=== PATIENT | female | born 1940 | race Hispanic/Latino ===

== ENCOUNTER 2018-07-29 13:01 | Emergency (ER) | payer MEDICARE, OTHER ==
[~2018-07-29] VITALS: Ht 160 cm; Wt 80.3 kg
[~2018-07-29 13:01] MED LIST: ALBUTEROL2.5 MG/3 M NEB; ALENDRONATE SOD70 MG PO; AMLODIPINE BESY10 MG PO; AMLODIPINE-BEN1 EAC5 PO; AUGMENTIN 875-1 EACH PO; CEFTIN250 MG; CETIRIZINE HCL10 MG PO; CIPRO500 MG PO; CLONIDINE HCL0.1 MG PO; CLONIDINE HCL0.2 MG PO; FAMOTIDINE40 MG PO; HYDROCHLOROTHIA25 MG PO; LISINOPRIL-HCT1 EAC2 PO; LISINOPRIL20 MG PO; MONTELUKAST SOD10 MG PO; NAPROXEN250 MG PO; OMEPRAZOLE40 MG PO; OYSTER SHELL 51 EACH PO; PREDNISONE10 MG PO; SYMBICORT 16010.2 GM INH; VITAMIN C500 MG PO
--- OUTSIDE RECORDS SUMMARY | 2018-07-29 13:04 | XMS REPORT ---
Author Author [facility] Organization [facility] Address Unknown Phone Unavailable Care Team Providers Care Bread Wrapper Name Role Phone HANS Suha CABRAL Unavailable Unavailable Payers Payer Name Policy Type Policy Number Effective Date Expiration Date Problems This patient has no known problems. Allergies, Adverse Reactions, Alerts Allergy Name Allergy Type Status Severity Reaction(s) Onset Date Inactive Date Treating Clinician Comments No Known Allergies DA Active U 2017-10-08 00:00:00 Medications This patient has no known medications. Results Test Description Test Time Test Comments Text Results Atomic Results Result Comments MRI BRAIN WO [facility] [address] [place] [address] Patient Name: KAILEY HILL MR #: [id number] : 1940 Age/Sex: 76/F Req #: [id number] Adm Physician: MISHA MAXWELL MD Ordered by: ARCADIO RHODES MD Report #: [id number] Location: MED/SURG Room/Bed: [facility] Procedure: [id number] MRI/MRI BRAIN WO Exam Date: 06/23/17 Exam Time: 1130 REPORT STATUS: Signed Exam: Brain MRI without IV contrast History: Dizziness, disequilibrium. Comparison studies: None Technique: Precontrast sagittal axial T2 FS, axial DWI, axial coronal T1 flair, axial T1 FLAIR and axial T2*GRE. Intravenous contrast: None Findings: Limitations: The sagittal T2 sequences somewhat limited by artifacts related to patient motion. Scalp: Normal in signal . No masses . Bone marrow: Normal in signal intensity. Brain sulci: Appropriate for age. Ventricles: Normal in size. No hydrocephalus. Extra axial spaces: No mass, no fluid collection. Parenchyma: No mass, hemorrhage or acute ischemia. Punctate nonspecific T2 FLAIR hyperintense focus in the anterior left subinsular white matter is compatible with age-appropriate chronic small vessel ischemic changes. Suprasellar region: No abnormalities. Craniocervical junction: Patent foramen magnum. No Chiari malformation . Vessels: Normal flow-voids in the arteries and sinuses. Incidental findings: Minimal T2 hyperintense inflammatory changes in the mastoids bilaterally. IMPRESSION: 1. No intracranial abnormalities. 2. No changes from the previous head CT of 06/23/2017. Signed by: Dr. Pilo Junior M.D. on 06/23/2017 1:27 PM Dictated By: PILO JUNIOR MD 26 Transcribed By: TANNER on 06/23/171326 COPY TO: ARCADIO RHODES MD CHEST 2 VIEWS [place] [address] Patient Name: KAILEY HILL MR #: [id number] : 1940 Age/Sex: 76/F Req #: [id number] Adm Physician: Ordered by: ARCADIO RHODES MD Report #: [id number] Location: Room/Bed: Procedure: [id number] DX/CHEST 2 VIEWS Exam Date: 06/23/17 Exam Time: 126 REPORT STATUS: Signed CHEST 2 VIEWS, Technique: CHEST 2 VIEWS Comparison: 01/31/2016 Clinical history: Chest pain DISCUSSION: Stable mild cardiomegaly. Otherwise normal appearance of the mediastinum, lungs, and pleural spaces. No acute bony abnormality seen. IMPRESSION: Mild cardiomegaly. Otherwise negative. Signed by: Dr Radha Ferguson MD on 06/23/2017 1:54 AM Dictated By: RADHA FERGUSON MD 3 Transcribed By: TANNER on 06/23/17153 COPY TO: ARCADIO RHODES MD CT BRAIN WO [place] [address] Patient Name: KAILEY HLIL MR #: [id number] : 1940 Age/Sex: 76/F Req #: [id number] Adm Physician: Ordered by: ARCADIO RHODES MD Report #: [id number] Location: ER Room/Bed: Procedure: [id number] CT/CT BRAIN WO Exam Date: 06/23/17 Exam Time: 126 REPORT STATUS: Signed History: Dizziness Comparison studies: None Technique: Axial images were obtained from the skull base to the vertex. Coronal and sagittal reconstructions obtained from the axial data. Findings: Scalp/skull: No abnormalities. No fractures, blastic or lytic lesions. Extra-axial spaces: No masses. No fluid collections. Brain sulci: Appropriate for age. Ventricles: Normal in size and configuration. No hydrocephalus. Parenchyma: No abnormal densities. No masses, hemorrhage, acute or chronic cortical vascular insults. Sellar/suprasellar region: No abnormalities Craniocervical junction: Patent foramen magnum. No Chiari one malformation. Incidental atherosclerotic calcifications in the carotid siphons. IMPRESSION: No intracranial abnormalities Signed by: Dr. Fabian Daniels M.D. on 06/23/2017 1:56 AM Dictated By: FABIAN DICKENS MD, MD 5 Transcribed By: TANNER on 06/23/17155 COPY TO: ARCADIO RHODES MD
[2018-07-29] MEDS ORDERED: LOSARTAN POTAS100 MG PO (13:18)
[2018-07-29 13:39] LABS: BASOPHILS % 0.3 % (0.0-1.0); EOSINOPHILS # (AUTO) 0.1 (0.0-0.4); EOSINOPHILS % 0.7 % (0.0-6.0); HEMATOCRIT 37.7 % (34.2-44.1); HEMOGLOBIN 12.4 g/dL (12.0-16.0); LYMPHOCYTES # (AUTO) 0.7 (1.0-3.2); LYMPHOCYTES % 9.1 % (18.0-39.1); MEAN CORPUSCULAR HEMOGLOBIN 28.6 pg (28-32); MEAN CORPUSCULAR HGB CONC 32.9 g/dL (31-35); MEAN CORPUSCULAR VOLUME 87.1 fL (81-99); MONOCYTES # (AUTO) 0.5 (0.2-0.8); NEUTROPHILS % 82.1 % (38.7-80.0); PLATELET COUNT 146 x10e3/uL (140-360); RED BLOOD COUNT 4.33 x10e6/uL (3.6-5.1); RED CELL DISTRIBUTION WIDTH 13.5 % (11.7-14.4)
[2018-07-29] MEDS ORDERED: ACETAMINOPHEN 325 MG TAB PO NR (13:45)
[2018-07-29 13:51] LABS: ALBUMIN 3.8 g/dL (3.5-5.0); ALBUMIN/GLOBULIN RATIO 1.3 (0.8-2.0); ANION GAP 13.8 mmol/L (8-16); CALCIUM 9.4 mg/dL (8.4-10.2); CREATININE, SERUM 1.13 mg/dL (0.57-1.11); POTASSIUM 3.8 mmol/L (3.5-5.1)
--- NOTE | 2018-07-29 14:58 | Diagnostic Imaging Report ---
PROCEDURE: X-RAY CHEST, TWO VIEWS COMPARISON: None. INDICATIONS: SEPSIS, COUGH, HEADACHE FINDINGS: LUNGS: Mild pulmonary vascular congestion. PLEURA: No effusions or pneumothorax. HEART & MEDIASTINUM: The heart is within normal size-limits. Tortuous thoracic aorta. BONES & SOFT TISSUES: No acute findings. CONCLUSION: Mild pulmonary vascular congestion Sean Chavarria D.O. Dictated by: Sean Chavarria D.O. on 07/29/2018 at 15:09 Electronically approved by: Sean Chavarria D.O. on 07/29/2018 at 15:09
[2018-07-29 16:14] VITALS: BP 112/75
== END 2018-07-29 16:19 | disposition home or self-care (01) ==
LOC: ER 13:01
DX: J10.1 Influenza due to other identified influenza virus with other respiratory manifestations (principal); I10 Essential (primary) hypertension; K21.9 Gastro-esophageal reflux disease without esophagitis; F32.9 Major depressive disorder, single episode, unspecified
CPT/HCPCS: 36415; 71046; 80053; 85025; 87040; 87400; 93005; 99283

== ENCOUNTER 2018-07-31 13:19 | Emergency (ER) | payer MEDICARE, OTHER ==
[~2018-07-31] VITALS: Ht 160 cm; Wt 80.3 kg
[~2018-07-31 13:19] MED LIST changes: +LOSARTAN POTAS100 MG PO
[2018-07-31] MEDS ORDERED: BENZONATATE 100 MG CAP PO STA (14:23)
--- NOTE | 2018-07-31 15:23 | Diagnostic Imaging Report ---
EXAMINATION: CHEST 2 VIEWS INDICATION: Cough, fever COMPARISON: Chest radiograph 07/29/18. FINDINGS: TUBES and LINES: None. LUNGS: Improved mild central vascular congestion. Mild patchy opacity in the left lower lung zone. No evidence of lobar consolidation. PLEURA: No pleural effusion or pneumothorax. HEART AND MEDIASTINUM: The cardiomediastinal silhouette is unchanged. Atherosclerotic calcification of the aortic arch. BONES AND SOFT TISSUES: No acute osseous lesion. Soft tissues are unremarkable. UPPER ABDOMEN: No free air under the diaphragm. IMPRESSION: Improved mild central vascular congestion. Mild patchy left basilar opacity which could represent atelectasis or early pneumonia in a patient with cough. Follow-up chest radiograph is suggested. Signed by: Dr. Katelyn Link MD on 07/31/2018 3:20 PM
[2018-07-31 16:02] VITALS: BP 146/57
[2018-07-31 16:31] LABS: BASOPHILS % 0.5 % (0.0-1.0); EOSINOPHILS # (AUTO) 0.1 (0.0-0.4); EOSINOPHILS % 1.8 % (0.0-6.0); HEMATOCRIT 38.8 % (34.2-44.1); HEMOGLOBIN 12.6 g/dL (12.0-16.0); LYMPHOCYTES # (AUTO) 1.3 (1.0-3.2); LYMPHOCYTES % 28.4 % (18.0-39.1); MEAN CORPUSCULAR HEMOGLOBIN 28.6 pg (28-32); MEAN CORPUSCULAR HGB CONC 32.5 g/dL (31-35); MONOCYTES # (AUTO) 0.5 (0.2-0.8); MONOCYTES % 11.8 % (4.4-11.3); NEUTROPHILS # (AUTO) 2.5 (2.1-6.9); PLATELET COUNT 164 x10e3/uL (140-360); RED BLOOD COUNT 4.41 x10e6/uL (3.6-5.1); RED CELL DISTRIBUTION WIDTH 13.6 % (11.7-14.4)
[2018-07-31] MEDS ORDERED: LEVOFLOXACIN 500 MG TAB ONE (17:42)
[2018-07-31] MEDS ORDERED: LEVOFLOXACIN 500 MG TAB PO ONE (18:00)
== END 2018-07-31 17:45 | disposition home or self-care (01) ==
LOC: ER 13:19
DX: R05 Cough (principal); J15.9 Unspecified bacterial pneumonia; I10 Essential (primary) hypertension; K21.9 Gastro-esophageal reflux disease without esophagitis
CPT/HCPCS: 36415; 71046; 83518; 85025; 87040; 87070; 99283

== ENCOUNTER 2019-06-04 13:04 | Observation (INO) | payer OTHER ==
[~2019-06-04] VITALS: Ht 162.6 cm; Wt 70.3 kg
[~2019-06-04 13:04] MED LIST changes: +MECLIZINE HCL12.5 MG PO
--- NOTE | 2019-06-04 14:02 | Diagnostic Imaging Report ---
EXAMINATION: CHEST SINGLE (PORTABLE) INDICATION: Shortness of breath. Dizzy. ^sob COMPARISON: 11/07/2018 FINDINGS: TUBES and LINES: None. LUNGS: Lungs are well inflated. Lungs are clear. There is no evidence of pneumonia or pulmonary edema. PLEURA: No pleural effusion or pneumothorax. HEART AND MEDIASTINUM: The cardiomediastinal silhouette is unremarkable. BONES AND SOFT TISSUES: No acute osseous lesion. Soft tissues are unremarkable. UPPER ABDOMEN: No free air under the diaphragm. IMPRESSION: No acute thoracic abnormality. Signed by: Dr. Jamarcus Duenas M.D. on 06/04/2019 1:58 PM
[2019-06-04 14:19] LABS: BASOPHILS % 0.5 % (0.0-1.0); EOSINOPHILS # (AUTO) 0.1 (0.0-0.4); EOSINOPHILS % 1.8 % (0.0-6.0); HEMATOCRIT 39.1 % (34.2-44.1); HEMOGLOBIN 12.8 g/dL (12.0-16.0); LYMPHOCYTES # (AUTO) 1.8 (1.0-3.2); LYMPHOCYTES % 22.8 % (18.0-39.1); MEAN CORPUSCULAR HEMOGLOBIN 28.1 pg (28-32); MEAN CORPUSCULAR HGB CONC 32.7 g/dL (31-35); MEAN CORPUSCULAR VOLUME 85.7 fL (81-99); MONOCYTES # (AUTO) 0.5 (0.2-0.8); MONOCYTES % 6.9 % (4.4-11.3); NEUTROPHILS # (AUTO) 5.2 (2.1-6.9); NEUTROPHILS % 67.5 % (38.7-80.0); PLATELET COUNT 189 x10e3/uL (140-360); RED BLOOD COUNT 4.56 x10e6/uL (3.6-5.1); RED CELL DISTRIBUTION WIDTH 13.9 % (11.7-14.4)
[2019-06-04 14:21] LABS: BILIRUBIN,URINE NEGATIVE (NEGATIVE); CLARITY,URINE CLEAR (CLEAR); COLOR,URINE YELLOW (YELLOW); KETONES,URINE NEGATIVE (NEGATIVE); LEUKOCYTE ESTERASE ,URINE TRACE (NEGATIVE); NITRITE,URINE NEGATIVE (NEGATIVE); PROTEIN,URINE DIPSTICK NEGATIVE (NEGATIVE); URINE UROBILINOGEN 0.2 mg/dL (0.2 - 1)
[2019-06-04 14:30] LABS: ALBUMIN 3.7 g/dL (3.5-5.0); ALBUMIN/GLOBULIN RATIO 1.4 (0.8-2.0); ANION GAP 13.8 mmol/L (8-16); CREATININE, SERUM 1.11 mg/dL (0.57-1.11); MAGNESIUM 1.6 MG/DL (1.3-2.1); POTASSIUM 3.8 mmol/L (3.5-5.1)
[2019-06-04 14:33] LABS: EPITHELIAL CELLS,URINE FEW /LPF; WBC,URINE (MAN) 0-5 /HPF (0-5)
[2019-06-04 14:37] LABS: CREATINE KINASE MB 0.7 ng/mL (0-5.0)
--- NOTE | 2019-06-04 15:03 | Diagnostic Imaging Report ---
EXAMINATION: Head CT HISTORY: Dizziness COMPARISON: Head CT 11/07/2018 TECHNIQUE: Multidetector axial images were obtained without contrast from the foramen magnum to the vertex . The images were reconstructed using brain and bone algorithms. Thin section brain images were reformatted into coronal and sagittal planes. Image quality: Motion/streaking artifact limits the evaluation of the skull base and posterior cranial fossa. Dose modulation, iterative reconstruction, and/or weight based adjustment of the mA/kV was utilized to reduce the radiation dose to as low as reasonably achievable. FINDINGS: Parenchyma: 1. No abnormal density in the brain parenchyma. 2. No mass or hemorrhage. No CT evidence of acute territorial vascular insult. Extra-axial spaces:No abnormal density. No extra-axial fluid collections Brain volume: Normal for age. Ventricles: No hydrocephalus or displacement. Arteries: No density suggestive of thrombus. Dural sinuses: No abnormal density. Extra-axial spaces: No abnormal density. Foramen magnum: No mass, Chiari malformation, or basilar invagination. Sella: No obvious mass. Paranasal/mastoid sinuses: Imaged portions unremarkable. Skull/Scalp: No lytic or blastic lesions. No fractures. IMPRESSION: No intracranial abnormalities, unchanged compared to head CT of 11/07/2018. Signed by: Dr. Skye Velazco M.D. on 06/04/2019 3:00 PM
[2019-06-04] MEDS: MECLIZINE HCL 12.5 MG TAB PO SCH ×2 (17:43→23:22)
[2019-06-04] MEDS ORDERED: LISINOPRIL40 MG PO (17:48)
[2019-06-04] MEDS ORDERED: HYDROCHLOROTH12.5 M1 PO (17:48)
[2019-06-04] MEDS ORDERED: CLONIDINE HCL0.3 MG PO (17:48)
[2019-06-04] MEDS ORDERED: LOSARTAN POTAS100 MG PO (17:50)
--- NOTE | 2019-06-04 19:04 | NUR ---
Report to COLLIN Cowan
[2019-06-04 20:00] VITALS: BP 191/98
[2019-06-04 22:11] VITALS: BP 191/98
[2019-06-04] MEDS ORDERED: LISINOPRIL 20 MG TAB PO ONE (22:45)
[2019-06-04] MEDS ORDERED: LOSARTAN POTASSIUM 100 MG TAB PO ONE (22:45)
[2019-06-05] VITALS: BP 121/56
[2019-06-05 04:00] VITALS: BP 138/63
[2019-06-05] MEDS: MECLIZINE HCL 12.5 MG TAB PO SCH ×2 (06:45→12:05)
--- NOTE | 2019-06-05 07:00 | NUR ---
BEDSIDE SHIFT REPORT RECEIVED FROM NIGHT RN. PT DENIES NEEDS AT THIS TIME.
[2019-06-05 09:00] VITALS: BP 138/63
[2019-06-05] MEDS ORDERED: NON-FORMULARY MEDICATION (Lisinopril 40 MG) PO SCH (09:00)
[2019-06-05] MEDS ORDERED: LOSARTAN POTASSIUM 100 MG TAB PO SCH (09:00)
[2019-06-05] MEDS ORDERED: LISINOPRIL 20 MG TAB PO SCH (09:00)
[2019-06-05 09:22] VITALS: BP 127/58
--- NOTE | 2019-06-05 12:04 | Discharge Summary ---
PRIMARY CARE PHYSICIAN: Laith Regan MD FINAL DIAGNOSES: 1. Benign positional vertigo. 2. Blood pressure medication adjustment. SUMMARY: The patient is a 78-year-old female with some blood pressure problems, but more from the dizziness or versus increase in blood pressure recently. The patient most likely blood pressure was elevated and adjusted the medication quite significantly, which may cause dizziness in light of blood pressure better controlled at 120 systolic. Blood pressure might drop too rapid and cause the dizziness. However, here the patient's systolic blood pressure 138 and diastolic 63, and her dizziness has completely resolved with meclizine schedule 12.5 mg every 6 hours. The patient is otherwise stable. She did receive 3 doses of the meclizine. She is ambulatory. She is doing much better. Her hydrochlorothiazide was discontinued along with her clonidine 0.3 mg. Recently, the patient's clonidine was adjusted per record that the patient was on clonidine 0.2 mg 3 times a day, changed to clonidine 0.3 mg 3 times a day. The losartan was 100 mg daily, changed to 100 mg twice a day. Then, HCTZ was a new medication at 12.5 mg daily. The plan and I discussed this with the patient's family, her daughter who is very well knowledgeable of the patient currently. The medication adjustment as follows. 1. Keep the clonidine 0.3 mg 3 times a day since the patient has been taking. Keep the lisinopril 40 mg twice a day since the patient has been taking. 2. Discontinue HCTZ and discontinue losartan since the patient is already on lisinopril. 3. New prescription nifedipine XL 30 mg in the evening. Meclizine 12.5 mg 3 times a day and every 6 hours as needed. Discussed with the patient at length and her granddaughter as well regarding changes and monitoring at home. The patient's granddaughter saying that they do have a blood pressure cuff and will monitor closely. I would like to keep the patient's blood pressure between 140-160 if possible. The patient is otherwise stable. Labs otherwise unremarkable. The patient will go home today. CT scan of the brain negative. Chest x-ray unremarkable. The patient will follow up with Dr. Laith Regan within a week. MD MARIA ELENA Klein/RAJAN /[id number]
[2019-06-05 12:48] VITALS: BP 189/79
== END 2019-06-05 14:45 | disposition home or self-care (01) ==
LOC: ER 13:04 → ERHOLD 15:28 → MED/SURG2 22:14
PROVIDERS: ADMIT Internal Medicine; ATTEND Internal Medicine
DX: H81.10 Benign paroxysmal vertigo, unspecified ear (principal); I10 Essential (primary) hypertension
CPT/HCPCS: 36415 ×2; 70450; 71045; 80053; 81001; 82550; 82553; 82948; 83735; 83880; 84484; 85025; 99284; G0378 ×2; J8597 ×2

== ENCOUNTER 2019-06-09 11:37 | Emergency (ER) | payer OTHER ==
[~2019-06-09] VITALS: Ht 160 cm; Wt 75.3 kg
[~2019-06-09 11:37] MED LIST changes: +CLONIDINE HCL0.3 MG PO; +HYDROCHLOROTH12.5 M1 PO; +LISINOPRIL40 MG PO
[2019-06-09 13:07] LABS: BASOPHILS # (AUTO) 0.1 (0.0-0.1); BASOPHILS % 0.6 % (0.0-1.0); EOSINOPHILS # (AUTO) 0.1 (0.0-0.4); EOSINOPHILS % 0.7 % (0.0-6.0); HEMATOCRIT 43.7 % (34.2-44.1); HEMOGLOBIN 14.2 g/dL (12.0-16.0); LYMPHOCYTES # (AUTO) 1.7 (1.0-3.2); LYMPHOCYTES % 19.3 % (18.0-39.1); MEAN CORPUSCULAR HEMOGLOBIN 27.7 pg (28-32); MEAN CORPUSCULAR HGB CONC 32.5 g/dL (31-35); MEAN CORPUSCULAR VOLUME 85.4 fL (81-99); MONOCYTES # (AUTO) 0.5 (0.2-0.8); MONOCYTES % 5.8 % (4.4-11.3); NEUTROPHILS # (AUTO) 6.3 (2.1-6.9); NEUTROPHILS % 73.1 % (38.7-80.0); PLATELET COUNT 217 x10e3/uL (140-360); RED BLOOD COUNT 5.12 x10e6/uL (3.6-5.1); RED CELL DISTRIBUTION WIDTH 13.7 % (11.7-14.4)
[2019-06-09 13:27] LABS: ALBUMIN 4.2 g/dL (3.5-5.0); ALBUMIN/GLOBULIN RATIO 1.3 (0.8-2.0); ANION GAP 15.5 mmol/L (8-16); CALCIUM 10.3 mg/dL (8.4-10.2); CREATININE, SERUM 1.46 mg/dL (0.57-1.11); POTASSIUM 4.5 mmol/L (3.5-5.1)
== END 2019-06-09 15:01 | disposition home or self-care (01) ==
LOC: ER 11:37
DX: R55 Syncope and collapse (principal)
CPT/HCPCS: 36415; 80053; 85025; 93005; 99284

== ENCOUNTER → 2019-06-25 | Outpatient (CLI) | payer OTHER ==
--- NOTE | 2019-06-25 12:38 | Diagnostic Imaging Report ---
Exam: Bone mineral density study. History: Osteopenia. Comparison: None Discussion: Evaluation of the left hip and lumbar spine was performed utilizing DEXA Hologic bone densitometer. The study is technically adequate. Left hip total bone mineral density: 0.839gm/cm2, T-score is -0.9, Z-score is 1.1. Left hip femoral neck bone mineral density: 0.705gm/cm2, T-score is -1.4, Z-score is 0.8. Lumbar spine total bone mineral density:0.949gm/cm2, T-score is-0.9, Z-score is 1.8. Impression: 1. Osteopenia of the left hip, fracture risk is increased 2. Normal bone mineral density of the lumbar spine, fracture risk is not increased. Least significant change (LSC) for bone mineral density as provided by fire prevention officer is 0.023 g/cm2 for lumbar spine and 0.027 g/cm2 for total hip. 10 -year fracture risk per WHO Fracture Risk Assessment Tool (FRAX) for: Major osteoporotic fracture is 7.2% Hip fracture is 1.5% The above fracture probability is calculated for an untreated patient. Fracture probably may be lower if the patient has received treatment. All treatment decisions require clinical judgment and consideration of individual patient factors, including patient preferences, comorbidities, previous drug use and risk factors not captured in the FRAX model (e.g. frailty, falls, vitamin D deficiency, increased bone turnover, interval significant decline in BMD). The patient's fracture risk is compared to an age-matched control. Medical evaluation for secondary causes of low bone bone mineral density may be appropriate. Correlate clinically for the necessity and timing of the next bone mineral density study. Signed by: Dr. Jamarcus Duenas M.D. on 06/25/2019 12:35 PM
== END ==
LOC: MAMMO 11:37
PROVIDERS: ATTEND Internal Medicine
DX: Z12.31 Encounter for screening mammogram for malignant neoplasm of breast (principal); M85.80 Other specified disorders of bone density and structure, unspecified site
CPT/HCPCS: 77067; 77080

== ENCOUNTER → 2019-07-21 | Outpatient (CLI) | payer OTHER ==
--- NOTE | 2019-07-22 10:20 | Diagnostic Imaging Report ---
#[id number] - MGDXRT #UNILATERAL RIGHT DIGITAL DIAGNOSTIC MAMMOGRAM WITH SPOT COMPRESSION: 07/21/2019 Comparison is made to exams dated: 06/25/2019 mammogram and 07/21/2019 ultrasound - [facility]. There are scattered fibroglandular elements in the right breast. There is a benign 5 mm cyst in the right breast central to the nipple anterior depth. This is seen in additional views. This correlates with ultrasound findings. No other significant masses or calcifications are seen in the breast. IMPRESSION: BENIGN See the report for ultrasound performed the same day for additional details. There is no mammographic evidence of malignancy. A 1 year screening mammogram is recommended. The patient will be notified by letter of the results. VIDYA HARRINGTON M.D. ct/penrad:07/21/2019 16:42:35 Waiter And Cashier: Leatha DOMINGUEZ)(Mor), [facility] letter sent: Normal Exam Mammogram BI-RADS: 2 Benign
--- NOTE | 2019-07-22 10:20 | Diagnostic Imaging Report ---
#[id number] - USBRELIMRT ULTRASOUND OF THE RIGHT BREAST : 07/21/2019 Comparison is made to exams dated: 07/21/2019 mammogram and 06/25/2019 mammogram - [facility]. Real-time ultrasound was performed on the right breast. There is a benign 5 mm oval cyst in the right breast central to the nipple anterior depth. This oval cyst is anechoic. This correlates with mammography findings. IMPRESSION: BENIGN There is no sonographic evidence of malignancy. The 5 mm oval cyst in the right breast is benign. A 1 year screening mammogram is recommended. VIDYA HARRINGTON M.D. ct/penrad:07/21/2019 16:43:07 Child Protection Specialist: RIKI DUNLAP [facility], [facility] letter sent: Normal Exam Ultrasound BI-RADS: 2 Benign
== END ==
LOC: MAMMO 12:29
PROVIDERS: ATTEND Internal Medicine
DX: R92.2 Inconclusive mammogram (principal); N64.59 Other signs and symptoms in breast

== ENCOUNTER 2020-01-31 20:57 | Emergency (ER) | payer MEDICARE, OTHER ==
[~2020-01-31] VITALS: Ht 160 cm; Wt 75.3 kg
--- NOTE | 2020-01-31 21:38 | Emergency Department Note ---
History of Present Illnes History of Present Illness Chief Complaint: Hypertension History of Present Illness This is a 79 year old female arrives to the ED with complaints of high blood pressure. Patient states she is compliant with her lisinopril and amlodipine daily, patient states she started seeing a new doctor and was told to take losartan as well as needed when her blood pressure is high. Patient's systolic blood pressure was over 200 home she was started prior to arrival. Patient complaining of mild lightheadedness in the morning. 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 DRY AND WNL FOR PT; EKG PERFORMED AND GIVEN TO ER FOR REVIEW; ER MD IN TRIAGE FOR INITIAL EVAL. Duration (how long): day(s) Timing of current episode: constant Progression: waxing and waning Chronicity: new Past Medical/Family History Physician Review I have reviewed the patient's past medical and family history. Any updates have been documented here. Past Medical History Recent Fever: No Clinical Suspicion of Infectio: No New/Unexplained Change in Ment: No Past Medical History: Hypertension, Cancer, Migraines, Depression, Hyperlipedem ia Other Medical History: DIZZINESS SKIN CA Past Surgical History: Cataract Removal Other Surgery: SKIN CA Other Last Tetanus: ood Review of Systems Review of Systems Constitutional: Reports no symptoms EENTM: Reports no symptoms Cardiovascular: Reports no symptoms Respiratory: Reports no symptoms Gastrointestinal: Reports no symptoms Genitourinary: Reports no symptoms Musculoskeletal: Reports no symptoms Integumentary: Reports no symptoms Neurological: Reports no symptoms Psychological: Reports no symptoms Endocrine: Reports no symptoms Hematological/Lymphatic: Reports no symptoms Physical Exam Related Data Allergies: Coded Allergies: No Known Allergies (Unverified , 06/04/19) Triage Vital Signs Vital Signs Date Time Temp Pulse Resp B/P (MAP) Pulse Ox O2 Delivery O2 Flow Rate FiO2 01/31/20 21:10 98.4 94 20 166/80 98 Physical Exam CONSTITUTIONAL HENT EYES NECK PULMONARY CARDIOVASCULAR GASTROINTESTINAL GENITOURINARY SKIN MUSCULOSKELETAL NEUROLOGICAL PSYCHOLOGICAL Results Laboratory Lab results reviewed: Yes Imaging Imaging results reviewed: Yes Assessment & Plan Medical Decision Making MDM The ED with concerns of high blood pressure medication patient is on QUYEN inhibitor and as well as. Patient was taking losartan as needed. Spoke to the Patient length about the need for an additional blood pressure medication that should not BE one that affects kidneys like losartan. Patient sent home and a prescription hydrochlorothiazide outpatient cardiology follow-up given. Assessment & Plan Final Impression: (1) Hypertension Depart Disposition: HOME, SELF-CARE Last Vital Signs Date Time Temp Pulse Resp B/P (MAP) Pulse Ox O2 Delivery O2 Flow Rate FiO2 01/31/20 21:10 98.4 94 20 166/80 98 Home Meds Reported Medications Lisinopril (LISINOPRIL) 40 Mg Tablet, 40 MG PO BID 06/04/19 Clonidine Hcl (CLONIDINE HCL) 0.3 Mg Tablet, 0.3 MG PO TID 06/04/19 Omeprazole (OMEPRAZOLE) 40 Mg Capsule., 40 MG PO DAILY 06/23/17 GLADYS DE LA GARZA DO Jan 31, 2020 21:38
[2020-01-31 21:55] LABS: BASOPHILS # (AUTO) 0.1 (0.0-0.1); BASOPHILS % 0.7 % (0.0-1.0); EOSINOPHILS # (AUTO) 0.2 (0.0-0.4); EOSINOPHILS % 2.2 % (0.0-6.0); HEMATOCRIT 38.9 % (34.2-44.1); HEMOGLOBIN 12.9 g/dL (12.0-16.0); LYMPHOCYTES # (AUTO) 2.5 (1.0-3.2); LYMPHOCYTES % 27.5 % (18.0-39.1); MEAN CORPUSCULAR HEMOGLOBIN 28.5 pg (28-32); MEAN CORPUSCULAR HGB CONC 33.2 g/dL (31-35); MEAN CORPUSCULAR VOLUME 86.1 fL (81-99); MONOCYTES # (AUTO) 0.6 (0.2-0.8); MONOCYTES % 6.3 % (4.4-11.3); NEUTROPHILS # (AUTO) 5.6 (2.1-6.9); NEUTROPHILS % 62.6 % (38.7-80.0); PLATELET COUNT 190 x10e3/uL (140-360); RED BLOOD COUNT 4.52 x10e6/uL (3.6-5.1); RED CELL DISTRIBUTION WIDTH 13.6 % (11.7-14.4)
[2020-01-31 22:08] LABS: ALANINE AMINOTRANSFERASE 14 IU/L (0-55); ALBUMIN/GLOBULIN RATIO 1.3 (0.8-2.0); ALKALINE PHOSPHATASE 112 IU/L (40-150); BLOOD UREA NITROGEN 23 mg/dL (7-26); BUN/CREATININE RATIO 20 (6-25); CALCIUM 9.2 mg/dL (8.4-10.2); CARBON DIOXIDE 20 mmol/L (22-29); CHLORIDE 105 mmol/L (98-107); CREATINE KINASE 29 IU/L (29-168); CREATININE, SERUM 1.14 mg/dL (0.57-1.11); EST GLOMERULAR FILTRATION RATE 46 ML/MIN (60-); GLUCOSE 113 mg/dL (74-118); SODIUM 135 mmol/L (136-145)
[2020-01-31] MEDS ORDERED: SODIUM CHLORIDE 0.9% 500ML 500 ML ONE (23:09)
[2020-01-31] MEDS ORDERED: SODIUM CHLORIDE 0.9% 500ML 500 ML IV ONE (23:15)
[2020-01-31] MEDS ORDERED: SODIUM CHLORIDE 0.9% 100 ML ONE (23:35)
[2020-01-31] MEDS ORDERED: IOPAMIDOL 370 MG/ML 200 ML INFUS..BTL INJ ONE (23:36)
--- NOTE | 2020-02-01 01:04 | Diagnostic Imaging Report ---
EXAMINATION: CHEST SINGLE (PORTABLE) INDICATION: ^ELEVATED BP ^[id number] ^2340 COMPARISON: None FINDINGS: AP view TUBES and LINES: None. LUNGS: Lungs are well inflated. Lungs are clear. There is no evidence of pneumonia or pulmonary edema. PLEURA: No pleural effusion or pneumothorax. HEART AND MEDIASTINUM: The cardiomediastinal silhouette is unremarkable. BONES AND SOFT TISSUES: No acute osseous lesion. Soft tissues are unremarkable. UPPER ABDOMEN: No free air under the diaphragm. IMPRESSION: No acute thoracic radiographic abnormality. Signed by: Barry Weiner MD on 02/01/2020 1:00 AM
--- NOTE | 2020-02-01 01:05 | Diagnostic Imaging Report ---
History: Dizziness, Comparison studies: Head CT 06/04/[address] and brain MRIs 06/23/2017. Technique: Axial images were obtained from the skull base prior to and following administration of IV contrast. Multiplanar coronal, sagittal and volume rendered 3-D images were reformatted from the axial source data. Intravenous contrast: 100 cc of Omnipaque 300. Findings: Head CT: Scalp: No abnormalities. Bones: No fractures, blastic or lytic lesions. Brain sulci: Mildly prominent. Ventricles: Normal in size and configuration. No hydrocephalus. Extra-axial spaces: No masses, no fluid collection. Parenchyma: No abnormal densities. No masses, acute hemorrhage, acute or chronic vascular insults. Sellar/suprasellar region: No abnormalities. Craniocervical junction: Patent foramen magnum. No Chiari one malformation. Intracranial CTA: No aneurysm or arterial vascular malformation identified. Anterior circulation: Internal carotid arteries: Patent bilaterally with scattered calcified plaque in the bilateral cavernous and paraophthalmic segments without significant stenosis. Anterior cerebral arteries: Patent, no proximal branch occlusion or stenosis. Middle cerebral arteries: Patent, no proximal branch occlusion or stenosis. Posterior circulation: Vertebral arteries: Patent, no abnormalities. Basilar artery: Patent, no abnormalities. Posterior cerebral arteries: Patent, no proximal branch occlusion or stenosis. Congenitally hypoplastic bilateral P1 segments with bilateral -type KINDERGARTEN INSTRUCTIONAL ASSISTANT origins. Anatomical variants: Anterior communicating artery: Patent. Posterior communicating arteries: Bilateral --type KINDERGARTEN INSTRUCTIONAL ASSISTANT origins. Vertebral arteries: Co-codominant. IMPRESSION: Head CT: No acute intracranial abnormalities. No changes from prior exams which date to 06/23/2017. Intracranial CTA: No acute abnormalities. Specifically, no major intracranial arterial branch occlusion or stenosis. Signed by: Dr. Ifeanyi Junior M.D. on 02/01/2020 1:02 AM
== END 2020-02-01 04:00 | disposition home or self-care (01) ==
LOC: ER 23:09
DX: I10 Essential (primary) hypertension (principal); E78.5 Hyperlipidemia, unspecified; F32.9 Major depressive disorder, single episode, unspecified; Z85.828 Personal history of other malignant neoplasm of skin
CPT/HCPCS: 36415; 70496; 71045; 80053; 82550; 82553; 84484; 85025; 93005; 99283; J7040; J7050; Q9967

== ENCOUNTER 2020-08-28 01:04 | Emergency (ER) | payer MEDICARE, OTHER ==
[~2020-08-28] VITALS: Ht 160 cm; Wt 75.3 kg
[2020-08-28] MEDS ORDERED: SODIUM CHLORIDE 0.9% 1000ML 1,000 ML IV STA (01:05)
[2020-08-28 01:17] LABS: BASOPHILS % 0.3 % (0.0-1.0); EOSINOPHILS # (AUTO) 0.2 (0.0-0.4); HEMATOCRIT 37.1 % (34.2-44.1); HEMOGLOBIN 12.1 g/dL (12.0-16.0); LYMPHOCYTES # (AUTO) 2.7 (1.0-3.2); LYMPHOCYTES % 28.5 % (18.0-39.1); MEAN CORPUSCULAR HEMOGLOBIN 28.6 pg (28-32); MEAN CORPUSCULAR HGB CONC 32.6 g/dL (31-35); MEAN CORPUSCULAR VOLUME 87.7 fL (81-99); MONOCYTES # (AUTO) 0.7 (0.2-0.8); MONOCYTES % 7.4 % (4.4-11.3); NEUTROPHILS # (AUTO) 5.9 (2.1-6.9); PLATELET COUNT 201 x10e3/uL (140-360); RED BLOOD COUNT 4.23 x10e6/uL (3.6-5.1); RED CELL DISTRIBUTION WIDTH 13.9 % (11.7-14.4)
[2020-08-28] MEDS ORDERED: SODIUM CHLORIDE 0.9% 500ML 500 ML ONE (01:29)
[2020-08-28] MEDS ORDERED: SODIUM CHLORIDE 0.9% 1000ML 500 ML IV ONE (01:30)
[2020-08-28 01:42] LABS: ALBUMIN 3.9 g/dL (3.5-5.0); ALBUMIN/GLOBULIN RATIO 1.3 (0.8-2.0); ANION GAP 17.5 mmol/L (8-16); CALCIUM 8.8 mg/dL (8.4-10.2); CREATININE, SERUM 1.08 mg/dL (0.57-1.11); POTASSIUM 3.5 mmol/L (3.5-5.1)
[2020-08-28] MEDS ORDERED: KETOROLAC TROMETHAMINE 30 MG/ML VIAL IV STA (03:16)
[2020-08-28 03:23] VITALS: BP 166/68
[2020-08-28] MEDS ORDERED: KETOROLAC TROMETHAMINE 30 MG/ML VIAL ONE (03:25)
== END 2020-08-28 03:50 | disposition home or self-care (01) ==
LOC: ER 01:09
DX: R51.9 Headache, unspecified (principal); I10 Essential (primary) hypertension; E78.5 Hyperlipidemia, unspecified; F32.9 Major depressive disorder, single episode, unspecified; Z85.828 Personal history of other malignant neoplasm of skin
CPT/HCPCS: 36415; 70450; 71045; 80053; 82550; 82553; 83880; 84484; 85025; 93005; 99284; J1885; J7040

== ENCOUNTER 2024-04-11 15:27 | Emergency (ER) | payer MEDICARE, OTHER ==
[~2024-04-11] VITALS: Ht 160 cm; Wt 86.2 kg
[~2024-04-11 15:27] MED LIST changes: +LASIX40 MG PO; +PANTOPRAZOLE SO40 MG PO
[2024-04-11 16:51] LABS: BASOPHILS % 0.6 % (0.0-1.0); EOSINOPHILS # (AUTO) 0.1 (0.0-0.4); EOSINOPHILS % 1.7 % (0.0-6.0); LYMPHOCYTES # (AUTO) 1.6 (1.0-3.2); MEAN CORPUSCULAR HEMOGLOBIN 28.8 pg (28-32); MEAN CORPUSCULAR HGB CONC 31.7 g/dL (31-35); MEAN CORPUSCULAR VOLUME 90.7 fL (81-99); MONOCYTES # (AUTO) 0.8 (0.2-0.8); MONOCYTES % 15.4 % (4.4-11.3); NEUTROPHILS # (AUTO) 2.8 (2.1-6.9); NEUTROPHILS % 51.7 % (38.7-80.0); PLATELET COUNT 151 x10e3/uL (140-360); RED BLOOD COUNT 4.52 x10e6/uL (3.6-5.1); RED CELL DISTRIBUTION WIDTH 14.3 % (11.7-14.4); WHITE BLOOD COUNT 5.44 x10e3/uL (4.8-10.8)
[2024-04-11 17:06] LABS: INR 0.99; PROTHROMBIN TIME 13.6 seconds (11.9-14.5)
[2024-04-11 17:16] VITALS: PULSE 80; RESP 20; O2SAT 96
[2024-04-11 17:16] LABS: ALBUMIN 3.5 g/dL (3.5-5.0); ALBUMIN/GLOBULIN RATIO 1.1 (0.8-2.0); ANION GAP 14.3 mmol/L (8-16); BILIRUBIN,TOTAL 0.3 mg/dL (0.2-1.2); CALCIUM 9.1 mg/dL (8.4-10.2); CREATININE, SERUM 1.21 mg/dL (0.57-1.11); POTASSIUM 4.3 mmol/L (3.5-5.1); TOTAL PROTEIN 6.6 g/dL (6.5-8.1)
[2024-04-11] MEDS: ALBUTEROL/IPRATROPIUM 3 ML NEB NEB ONE (17:16)
[2024-04-11 17:22] LABS: TROPONIN I 0.018 ng/mL (0-0.300)
[2024-04-11 17:30] VITALS: PULSE 71; RESP 18; TEMP 97.8; O2SAT 98
[2024-04-11 17:36] LABS: INFLUENZAE A&B ANTIGEN (RAPID) POSITIVE FLU A (NEGATIVE)
[2024-04-11 17:37] LABS: RESPIRATORY SYNC. VIRUS NEGATIVE (NEGATIVE)
[2024-04-11] MEDS: METHYLPREDNISOLONE SOD SUCC 125 MG/2ML VIAL IV STA (17:40)
[2024-04-11] MEDS ORDERED: PREDNISONE20 MG PO (18:15)
[2024-04-11] MEDS ORDERED: VENTOLIN HFA18 GM INH (18:15)
[2024-04-11] MEDS ORDERED: TAMIFLU75 MG PO (18:15)
[2024-04-11] MEDS ORDERED: TAMIFLU30 MG PO (18:15)
== END 2024-04-11 18:55 | disposition home or self-care (01) ==
LOC: ER 15:51
DX: R06.02 Shortness of breath (principal); J10.1 Influenza due to other identified influenza virus with other respiratory manifestations; R05.9 Cough, unspecified; I10 Essential (primary) hypertension; E78.5 Hyperlipidemia, unspecified; F32.A Depression, unspecified; Z11.52 Encounter for screening for COVID-19; R94.31 Abnormal electrocardiogram [ECG] [EKG]; Z85.828 Personal history of other malignant neoplasm of skin
CPT/HCPCS: 36415; 71045; 80053; 82550; 83880; 84484; 85025; 85610; 85730; 87400; 87420; 93005; 94640; 94799; 99284; J2919; U0002